=== PATIENT | female | born 1970 | race Caucasian/White ===

== ENCOUNTER 2019-11-19 17:45 | Emergency (ER) | payer MEDICARE, MEDICAID ==
[~2019-11-19] VITALS: Ht 175.3 cm; Wt 93.8 kg
[2019-11-19 17:57] VITALS: BP 140/72
--- NOTE | 2019-11-19 18:19 | NUR ---
PT WITH SI, STATES SHE HAS INTENT TO SLIT HER WRISTS, SHE STATES SHE HAS HX OF ATTEMPT IN THE DISTANT PAST 1986 BY INTENTIONAL OD. PT WITH HX OF SCHIZ, DEPRESSION. BELONGINGS TAKEN FROM PT, 1 BELONGING BAG PLACED IN LOCKER. PT IN SECURE RM WITH SITTER IN PLACE.
--- NOTE | 2019-11-19 18:40 | NUR ---
ALL [employer] CLERK TO EVAL PT
[2019-11-19 18:41] LABS: BASOPHILS # (AUTO) 0.06 x10^3/uL (0-0.1); BASOPHILS % (AUTO) 1 % (0-1); EOSINOPHILS # (AUTO) 0.22 x10^3/uL (0-0.4); EOSINOPHILS % (AUTO) 3 % (1-7); LYMPHOCYTES # (AUTO) 1.92 x10^3/uL (1-3.4); LYMPHOCYTES % (AUTO) 25 % (22-44); MD NO; MEAN CORPUSCULAR HEMOGLOBIN 30.1 pg (27.0-34.8); MEAN CORPUSCULAR HGB CONC 32.7 g/dL (32.4-35.8); MEAN CORPUSCULAR VOLUME 91.9 fL (80-100); MEAN PLATELET VOLUME 8.7 fL (7.4-10.4); MONOCYTES # (AUTO) 0.48 x10^3/uL (0.2-0.8); MONOCYTES % (AUTO) 6 % (2-9); NEUTROPHILS # (AUTO) 4.92 x10^3/uL (1.8-6.8); NEUTROPHILS % (AUTO) 65 % (42-75); PLATELET COUNT 209 x10^3/uL (130-400); RED BLOOD COUNT 4.45 x10^6/uL (3.82-5.3); RED CELL DISTRIBUTION WIDTH 13.1 % (9.6-15.2)
[2019-11-19 18:50] LABS: AMPHETAMINE SCREEN, URINE Negative (Negative); BARBITURATE SCREEN, URINE Negative (Negative); BENZODIAZEPINE SCREEN, URINE Positive (Negative); CANNABINOID SCREEN, URINE Negative (Negative); COCAINE SCREEN, URINE Negative (Negative); METHADONE SCREEN, URINE Negative (Negative); OPIATE SCREEN, URINE Negative (Negative)
[2019-11-19 18:54] LABS: ALBUMIN 3.5 g/dL (3.4-5.0); ANION GAP 6 mmol/L (5-15); CALCIUM 8.8 mg/dL (8.5-10.1); CHLORIDE 106 mmol/L (98-107)
[2019-11-19 18:58] LABS: ALANINE AMINOTRANSFERASE 18 U/L (12-78); ALKALINE PHOSPHATASE 52 U/L (45-117); BILIRUBIN,TOTAL 0.2 mg/dL (0.2-1.0); CREATININE 0.78 mg/dL (0.55-1.02); SALICYLATE LEVEL 2.4 mg/dL (2.8-20.0); TOTAL PROTEIN 6.7 g/dL (6.4-8.2)
--- NOTE | 2019-11-19 19:03 | NUR ---
ROGER AL STATES SHE IS GOING TO HAVE THROUGHPUT RN CALL [facility] TO SEE IF THEY WILL TAKE HER VOLUNTARILY. SERVANDO SAID SHE IS NOT GOING TO PLACE PT ON HOLD. IF [facility] WILL NOT TAKE HER A VOLUNTARY, THEY SHE WILL HAVE PT DISCHARGED.
--- NOTE | 2019-11-19 19:59 | NUR ---
[facility]MISSIONS AT [facility] STATES THEY HAVE BEDS AVAILABLE AND ARE WILLING TO ASSESS PT FOR ADMISSION. ADMISSION RN STATES TO SEND PT OVER FOR ASSESSMENT.
== END 2019-11-19 20:21 | disposition home or self-care (01) ==
LOC: ED 19:31
DX: F32.9 Major depressive disorder, single episode, unspecified (principal)
CPT/HCPCS: 36415; 80053; 80307; 85025; 99284